=== PATIENT | male | born 2000 | race Hispanic/Latino ===

== ENCOUNTER 2023-07-20 11:33 | Emergency (ER) | payer SELFPAY ==
[2023-07-20 11:35] VITALS: BP 128/91
[2023-07-20] MEDS: NSS 1000 IV (12:09)
[2023-07-20] MEDS: ZOFRAN 4 MG IV (12:10)
[2023-07-20 12:17] LABS: % Basophils 0.6 % (0-2); % Eosinophils 3.9 % (0-6); % Immature Granulocytes 0.9 % (0-0.5); % Lymphocytes 45.7 % (20.5-51.1); % Monocytes 7.1 % (1.7-9.3); % Neutrophils 41.8 % (42.2-75.2); Absolute Eosinophils 0.3 10^3/uL (0-0.7); Absolute Immature Granulocytes 0.1 10^3/uL (0-0.05); Absolute Lymphocytes 2.9 10^3/uL (1.2-3.4); Absolute Monocytes 0.5 10^3/uL (0.1-0.6); Absolute Neutrophils 2.7 10^3/uL (1.4-6.5); Hematocrit 41.8 % (39.0-52.0); Hemoglobin 15.3 g/dL (13.0-18.0); Mean Corp Hgb Conc. 36.6 g/dL (33.0-37.0); Mean Corpuscular Hgb 31.5 pg (27.0-31.0); Mean Corpuscular Volume 86.2 fL (80.0-94.0); Mean Platelet Volume 9.8 fL (7.4-10.4); Nucleated Red Blood Cells % 0 % (-); Platelet Count 228 10^3/uL (130-400); Red Blood Cell Count 4.85 10^6/uL (4.70-6.10); Red Cell Dist. Width 12.2 % (11.5-14.5); White Blood Cell Count 6.4 10^3/uL (4.8-10.8)
--- NOTE | 2023-07-20 12:17 | ED.GENMED ---
History of Present Illness
General
Chief Complaint: Abdominal Pain
Time Seen by Provider: 07/20/23 11:52
Travel History
Have you had any contact with someone who has COVID-19?: No
Do you have any symptoms of coronavirus? Fever > 100 degrees, chills, cough, shortness of breath, sore throat, loss of taste or smell, muscle aches, or headache?: No
History of Present Illness
History of Present Illness:
23-year-old male no known past medical history presents to the emergency department for evaluation of left flank discomfort that has been intermittent for the past several months, worse today. He notes that in the past 24 to 48 hours he has had
tactile fevers associated with nausea, vomiting, and diarrhea. He is concerned that he feels a lump to the left flank. Denies any hematemesis or hematochezia. No known ill contacts. No prior abdominal surgery
Review of Systems
Review of Systems
Allergies reviewed?: Yes
All Other Systems: ROS reviewed and negative except as documented in HPI and ROS
Phy Exam
Physical Exam
Physical Exam:
GEN: Well appearing, NAD, WDWN
HEENT: Oral mucosa moist, no scleral icterus
Cardiac: Regular rate and rhythm, no murmurs
Lung: No respiratory distress, no tachypnea
Abdomen: Soft, minimally tender to the left flank associated with a small nodular density that is likely a lipoma or calcification, no other reproducible tenderness, no rigidity
MSK: No gross deformity or injuries
Skin: Good color, no pallor or jaundice, no rashes
Neuro: AO x3, moves all extremities freely
Psych: Calm, cooperative
Course
Orders/Labs/Results
Orders:
Orders
07/20/23 11:51
IV Insert/Care/Rem.- Treatment PRN
Urinalysis Reflex To Culture Urgent
Date Specimen was Collected: 07/20/23
Time Specimen was Collected: 11:52
07/20/23 11:55
Complete Blood Count/With Diff Urgent
Comprehensive Metabolic Panel Urgent
Lipase Urgent
07/20/23 12:02
0.9% Sodium Chloride 1000 ml [Nss] 1,000 ml IV BOLUS
Ondansetron Injectable [Zofran] 4 mg IV NOW STA
Abnormal Lab Results
07/20/23
11:55
MCH 31.5 H pg
(27.0-31.0)
Abs Immat Gran (auto) 0.1 H 10^3/uL
(0-0.05)
Immature Gran % 0.9 H %
(0-0.5)
Neutrophils % 41.8 L %
(42.2-75.2)
Glucose 106 H mg/dl
(70-99)
07/20/23 11:55
07/20/23 11:55
Vital Signs
Initial and Last Documented VS:
Initial Vital Signs
Temp Pulse Resp BP Pulse Ox
99.7 F 95 16 128/91 98
07/20/23 11:35 07/20/23 11:35 07/20/23 11:35 07/20/23 11:35 07/20/23 11:35
Last Documented Vital Signs
Temp Pulse Resp BP Pulse Ox
99.7 F 95 16 128/91 99
07/20/23 11:35 07/20/23 11:35 07/20/23 11:35 07/20/23 11:35 07/20/23 14:01
MDM/Problems Addressed
MDM/Problems Addressed:
Small palpable lump to the left flank is likely a benign nodular lesion such as lipoma or calcification. Do not feel this has any correlation of symptoms. Presentation most consistent with viral gastroenteritis, tolerating p.o. at time of
discharge. Will provide prescription for antiemetics, free clinic follow-up recommended as the pt has no health insurance or PCP
*Critical Care Note
Total Time (30-74mins, 75-104mins- exclusive of procedures): Not Applicable
ED Attending Note
-
Portions of this chart may have been created with voice recognition software.� Occasional wrong word or��sound alike� substitutions may have occurred due to the inherent limitations of voice recognition software.
Discharge Plan
Departure
Patient Disposition: Home (Routine Discharge)
Date of Disposition: 07/20/23
Time of Disposition: 13:50
Patient with high blood pressure during this ER visit?: No
Discharge Problem:
Gastroenteritis
Instructions: Nausea and Vomiting, Adult (DC)
Prescriptions:
New
ondansetron 4 mg tablet,disintegrating
4 mg PO TIDPRN PRN (Reason: nausea/vomiting) Qty: 10 0RF
Referrals:
UNKNOWN - PT DOES,NOT KNOW [Family Provider] -
Activity Restrictions/Additional Instructions:
[facility]
[phone]
[address]
[place], [id number]
Interventions
Interventions:
*Risk Screen - Suicide Last Done: 07/20/23 11:35
*General Assessment Last Done: 07/20/23 11:35
*Neglect/Abuse Screening Last Done: 07/20/23 11:35
*Nursing Disposition Last Done: 07/20/23 14:05
AF-Gtnzsn-Fpdxoiwyhi Assessment Last Done: 07/20/23 11:56
Discharge Date and Time
Discharge Date/Time: 07/20/23 14:08
Print Language: [id number]
[2023-07-20 12:31] LABS: ALT (SGPT) 23 U/L (0-50); AST (SGOT) 29 U/L (17-59); Albumin 4.9 g/dl (3.5-5.0); Alkaline Phosphatase 84 U/L (38-126); Blood Urea Nitrogen 16 mg/dl (9-20); Carbon Dioxide 29 mmol/L (22-30); Chloride 102 mmol/L (98-107); Glucose 106 mg/dl (70-99); Lipase 55 U/L (23-300); Potassium 4.1 mmol/L (3.5-5.1); Sodium 137 mmol/L (135-145); Total Bilirubin 1.1 mg/dl (0.2-1.3); Total Protein 8.2 g/dl (6.3-8.2); eGFR > 60.00
== END 2023-07-20 14:08 | disposition home or self-care (01) ==
LOC: EMR 11:33
PROVIDERS: EMERGENCY PHYSICIAN Emergency Medicine
DX: K52.9 Noninfective gastroenteritis and colitis, unspecified (principal)
CPT/HCPCS: 99284; 96374; 96361; 80053; 83690; 85025